=== PATIENT | male | born 1995 | race Caucasian/White ===

== ENCOUNTER 2018-12-15 13:30 | Inpatient (IN) | payer MEDICAID, OTHER ==
[~2018-12-15] VITALS: Ht 190.5 cm; Wt 72.1 kg
[~2018-12-15 13:30] MED LIST: BUPR-93 PO; NICO21T TD
[2018-12-15 15:09] LABS: BASOPHILS % (AUTO) 0.4 % (0.0-2.0); EOSINOPHILS % (AUTO) 6.7 % (1.0-6.0); HEMOGLOBIN 13.1 g/dL (13.5-17.5); LYMPHOCYTES # (AUTO) 1.1 K/uL (1.0-4.8); LYMPHOCYTES % (AUTO) 14.5 % (22.0-44.0); MEAN CORPUSCULAR HEMOGLOBIN 29.1 pg (26.0-34.0); MEAN CORPUSCULAR HGB CONC 33.6 G/dL (31.0-37.0); MEAN CORPUSCULAR VOLUME 87 fL (80-100); MONOCYTES # (AUTO) 0.8 K/uL (0.1-1.0); MONOCYTES % (AUTO) 10.5 % (2.0-9.0); NEUTROPHILS # (AUTO) 5.1 K/uL (1.8-7.7); NEUTROPHILS % (AUTO) 67.9 % (40.0-70.0); PLATELET COUNT (AUTO) 260 K/uL (150-450); RED CELL DISTRIBUTION WIDTH 13.5 % (11.5-14.5)
[2018-12-15 15:17] LABS: ANION GAP 8 mmol/L (8-16); CALCIUM, TOTAL 8.9 mg/dL (8.8-10.5); CARBON DIOXIDE 28 mmol/L (22-29); CHLORIDE 102 mmol/L (98-107); CREATININE 0.58 mg/dL (0.60-1.30); GLOMERULAR FILTR. RATE CALC > 60 mL/min (>60); GLUCOSE,RANDOM 89 mg/dL (70-110); POTASSIUM 3.3 mmol/L (3.5-5.1); SODIUM SERUM 138 mmol/L (136-145); UREA NITROGEN, BLOOD 16 mg/dL (7-18)
[2018-12-15 15:18] LABS: AMPHET/METH SCREEN,URINE POSITIVE (NEGATIVE); BARBITURATE SCREEN, URINE NEGATIVE (NEGATIVE); BENZODIAZEPINES SCREEN,URINE NEGATIVE (NEGATIVE); CANNABINOID SCREEN,URINE NEGATIVE (NEGATIVE); COCAINE SCREEN,URINE NEGATIVE (NEGATIVE); METHADONE SCREEN, URINE NEGATIVE (NEGATIVE); OPIATE SCREEN,URINE NEGATIVE (NEGATIVE)
[2018-12-15 15:20] LABS: PHENCYCLIDINE SCREEN,URINE NEGATIVE (NEGATIVE)
[2018-12-15 15:23] LABS: ALANINE AMINOTRANSFERASE 48 U/L (12-78); ALBUMIN 3.7 g/dL (3.4-5.0); ALKALINE PHOSPHATASE 122 U/L (46-116); ASPARTATE AMINOTRANSFERASE 34 U/L (15-37); BILIRUBIN,TOTAL 0.6 mg/dL (0.1-1.0)
[2018-12-15] MEDS ORDERED: LORazepam 2 MG TABLET PO PRN (16:00)
[2018-12-15] MEDS ORDERED: ZOLPIDEM TARTRATE 10 MG TABLET PO PRN (16:00)
[2018-12-15] MEDS ORDERED: POTASSIUM CHLORIDE 20 MEQ ER TABLET PO ONE (16:15)
[2018-12-15 19:37] VITALS: BP 121/77
[2018-12-15] MEDS ORDERED: MAG HYDROX/AL HYDROX/SIMETH ES 30 ML SUSPENSION UDCUP PO PRN (20:15)
[2018-12-15] MEDS ORDERED: IBUPROFEN 400 MG TABLET PO PRN (20:15)
[2018-12-15] MEDS ORDERED: CloNIDine HCL 0.1 MG TABLET PO PRN (20:15)
[2018-12-15] MEDS ORDERED: DOCUSATE SODIUM 100 MG CAPSULE PO PRN (20:15)
[2018-12-15] MEDS ORDERED: ALBUTEROL SULFATE HFA 90 MCG/PUFF 8 GM INHALER IH PRN (20:15)
[2018-12-15] MEDS ORDERED: ONDANSETRON HCL 4 MG TABLET PO PRN (20:15)
[2018-12-15] MEDS ORDERED: MAGNESIUM HYDROXIDE SUSPENSION 30 ML UDCUP PO PRN (20:15)
[2018-12-15] MEDS ORDERED: ACETAMINOPHEN 325 MG TABLET PO PRN (20:15)
[2018-12-15] MEDS ORDERED: GuaiFENesin/D-METHORPHAN [SUGAR-FREE] 200-20MG/10 ML SYRUP UDCUP PO PRN (20:15)
[2018-12-15] MEDS ORDERED: LOPERAMIDE HCL 2 MG CAPSULE PO PRN (20:15)
[2018-12-15] MEDS ORDERED: PETROLATUM,WHITE 71 GM JELLY TP PRN (20:15)
[2018-12-16 04:20] VITALS: BP 118/70
[2018-12-16 08:19] VITALS: BP 113/72
[2018-12-16] MEDS: NICOTINE 14 MG/24 HOUR PATCH TD SCH (08:37)
[2018-12-16] MEDS: HALOPERIDOL 5 MG TABLET PO PRN (08:37)
[2018-12-16 08:57] LABS: ALANINE AMINOTRANSFERASE 46 U/L (12-78); ALBUMIN 3.4 g/dL (3.4-5.0); ALKALINE PHOSPHATASE 108 U/L (46-116); ANION GAP 6 mmol/L (8-16); ASPARTATE AMINOTRANSFERASE 31 U/L (15-37); BILIRUBIN,TOTAL 0.8 mg/dL (0.1-1.0); CALCIUM, TOTAL 8.6 mg/dL (8.8-10.5); CARBON DIOXIDE 27 mmol/L (22-29); CHLORIDE 105 mmol/L (98-107); CHOL/HDL RATIO 3.2 (4.2-7.3); CHOLESTEROL 161 mg/dL (131-200); CREATININE 0.53 mg/dL (0.60-1.30); FREE T4 (FREE THYROXINE) 0.86 ng/dL (0.76-1.46); GLOMERULAR FILTR. RATE CALC > 60 mL/min (>60); GLUCOSE,RANDOM 79 mg/dL (70-110); HDL CHOLESTEROL 51 mg/dL (40-60); LDL CHOL (CALC.) 91 mg/dL (0-130); POTASSIUM 3.9 mmol/L (3.5-5.1); SODIUM SERUM 138 mmol/L (136-145); THYROID STIMULATING HORMONE 1.02 uIU/mL (0.36-3.74); TOTAL PROTEIN, SERUM 6.7 g/dL (6.4-8.2); TRIGLYCERIDES 94 mg/dL (15-150); UREA NITROGEN, BLOOD 12 mg/dL (7-18)
[2018-12-16 09:17] LABS: HEMOGLOBIN A1C 5.3 % (4.5-6.2)
[2018-12-16] MEDS: FERROUS SULFATE 325 MG EC TABLET PO SCH (16:12)
[2018-12-16] MEDS: OLANZapine 5 MG TABLET PO SCH (16:12)
[2018-12-16 17:52] VITALS: BP 115/62
[2018-12-17 03:22] VITALS: BP 120/81
[2018-12-17] MEDS: FERROUS SULFATE 325 MG EC TABLET PO SCH ×2 (06:55→17:13)
[2018-12-17] MEDS: DULoxetine HCL 20 MG CAPSULE PO SCH (09:18)
[2018-12-17] MEDS: OLANZapine 5 MG TABLET PO SCH ×2 (09:18→16:13)
[2018-12-17] MEDS: NICOTINE 14 MG/24 HOUR PATCH TD SCH (09:19)
[2018-12-18 02:20] VITALS: BP 119/76
[2018-12-18] MEDS: FERROUS SULFATE 325 MG EC TABLET PO SCH ×2 (05:46→09:32)
[2018-12-18] MEDS: DULoxetine HCL 20 MG CAPSULE PO SCH (09:00)
[2018-12-18] MEDS: NICOTINE 14 MG/24 HOUR PATCH TD SCH (09:00)
[2018-12-18] MEDS: OLANZapine 5 MG TABLET PO SCH (09:00)
[2018-12-18 09:05] VITALS: BP 128/67
[2018-12-18] MEDS: HALOPERIDOL 5 MG TABLET PO PRN (09:28)
[2018-12-18] MEDS: OLANZapine 7.5 MG TABLET PO SCH (16:23)
[2018-12-18 21:43] VITALS: BP 125/69
[2018-12-19 03:41] VITALS: BP 123/72
[2018-12-19] MEDS: FERROUS SULFATE 325 MG EC TABLET PO SCH ×2 (06:56→16:47)
[2018-12-19] MEDS: DULoxetine HCL 60 MG CAPSULE PO SCH (08:28)
[2018-12-19] MEDS: NICOTINE 14 MG/24 HOUR PATCH TD SCH (08:28)
[2018-12-19] MEDS: OLANZapine 7.5 MG TABLET PO SCH ×2 (08:29→16:47)
[2018-12-20] MEDS: FERROUS SULFATE 325 MG EC TABLET PO SCH (06:01)
[2018-12-20 07:12] VITALS: BP 118/62
[2018-12-20 08:38] VITALS: BP 112/65
[2018-12-20] MEDS: DULoxetine HCL 60 MG CAPSULE PO SCH (08:49)
[2018-12-20] MEDS: NICOTINE 14 MG/24 HOUR PATCH TD SCH (08:49)
[2018-12-20] MEDS: OLANZapine 7.5 MG TABLET PO SCH (08:50)
[2018-12-20] MEDS ORDERED: DULO60CA44 PO (11:04)
[2018-12-20] MEDS ORDERED: FERR-89 PO (11:04)
[2018-12-20] MEDS ORDERED: OLAN7.5T2 PO (11:04)
== END 2018-12-20 13:00 | disposition home or self-care (01) | DRG 751 ==
LOC: EMS 13:31 → B2S 16:41
PROVIDERS: ADMIT Psychiatry & Neurology Child & Adolescent Psychiatry; ATTEND Psychiatry & Neurology Psychiatry
DX: F33.2 Major depressive disorder, recurrent severe without psychotic features (principal); R45.851 Suicidal ideations; F60.3 Borderline personality disorder; F17.210 Nicotine dependence, cigarettes, uncomplicated; F19.10 Other psychoactive substance abuse, uncomplicated; D64.9 Anemia, unspecified; E87.6 Hypokalemia; F41.9 Anxiety disorder, unspecified; Z79.899 Other long term (current) drug therapy; Z91.5 Personal history of self-harm; Z71.6 Tobacco abuse counseling; Z71.51 Drug abuse counseling and surveillance of drug abuser
CPT/HCPCS: 83036; 84436; 84439; 84443; 87081; 90686; G0480